=== PATIENT | male | born 1955 | race Caucasian/White ===

== ENCOUNTER 2021-04-29 12:23 | Emergency (ER) | payer BC ==
[2021-04-29] MEDS ORDERED: Bupivacaine 0.5% 10 ML SDV INJECT ONE (12:59)
[2021-04-29] MEDS ORDERED: Diphtheria,Pertussis(Acell),Tetanus Vaccine 0.5 ML Syringe IM ONE (12:59)
[2021-04-29] MEDS ORDERED: Lidocaine 1% 5 ML VIAL INJECT ONE (12:59)
== END 2021-04-29 14:55 | disposition home or self-care (01) ==
LOC: MW.ED 12:23
DX: S61.012A Laceration without foreign body of left thumb without damage to nail, initial encounter (principal); Z23 Encounter for immunization; F17.210 Nicotine dependence, cigarettes, uncomplicated; W27.0XXA Contact with workbench tool, initial encounter; Y93.H3 Activity, building and construction; Y99.0 Civilian activity done for income or pay
CPT/HCPCS: 12002; 73130; 90471; 90715; 99283; J3490; 64450